=== PATIENT | female | born 1970 | race American Indian/Alaskan Native ===

== ENCOUNTER 2016-09-18 12:37 | Emergency (ER) | payer MEDICAID ==
[2016-09-18 13:48] VITALS: BP 140/98
[2016-09-18] MEDS: NORCO PO ONE (15:34)
--- NOTE | 2016-09-18 15:52 | XRay Report ---
FINAL REPORT EXAM: XR FOOT 3 RT HISTORY: RT FOOT PAIN TECHNIQUE: Three views right foot. PRIORS: None currently available. FINDINGS: There is no acute fracture. There is no evidence for healing fracture. There is no acute dislocation. 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 There is no cortical destruction to suggest osteomyelitis. There are no suspicious osseous lesions. There are no radiopaque foreign objects. Achilles enthesophyte. Calcaneal plantar spur. IMPRESSION: No acute osseous findings. Achilles enthesophyte. Calcaneal plantar spur.
--- NOTE | 2016-09-18 16:15 | Emergency Department Report ---
Entered by CADENCE MACE, acting as scribe for JONN PALMER NP. ED Extremity Problem HPI - General Chief complaint: Extremity Problem,Nontraumatic Stated complaint: RT PINKY TOE SWOLLEN Time Seen by Provider: 09/18/16 15:12 Source: patient Mode of arrival: Wheelchair Limitations: No Limitations - History of Present Illness Initial comments: 46 y/o female with PMHx of CVA and HTN, presents to the ED c/o right lateral foot and right 3rd, 4th, and 5th toe pain beginning last night and worsening this morning. The pain is characterized as throbbing and severe, and aggravated by palpation and ambulation. She states she is unable to tolerate ambulation and wearing shoes. She denies any recent trauma to the affected area and denies Hx of gout. Associated symptom of right 5th toe swelling, but she denies chest pain, SOB, numbness, and tingling. Patient has been taking OTC ibuprofen with no alleviation of the symptoms. Patient states that she did not drive to the ED and states she has a ride home. MD Complaint: extremity pain (and tenderness) -: Last night, This morning (became worse) Location: right (lateral foot) History of Same: No (patient denies Hx of gout) -: No fever, No associated chest pain Radiation: none Severity scale (0 -10): 10 Quality: other (throbbing) Consistency: constant Improves with: nothing (no alleviation with OTC ibuprofen) Worsens with: weight bearing, palpation Associated Symptoms: other (swelling of the right fifth toe, denies numbness and tingling). denies: chest pain, shortness of breath, fever - Related Data Previous Rx's Medication Instructions Recorded Last Taken Type Ibuprofen [Motrin 600 MG tab] 600 mg PO Q8H PRN 20 Days 09/18/16 Unknown Rx Prednisone [predniSONE] 40 mg PO QDAY 5 Days 09/18/16 Unknown Rx Allergies Allergy/AdvReac Type Severity Reaction Status Date / Time Sulfa (Sulfonamide Allergy Swelling Verified 09/18/16 13:42 Antibiotics) ED Review of Systems Constitutional: denies: chills, fever Eyes: denies: eye pain, eye discharge, vision change ENT: denies: ear pain, throat pain Respiratory: denies: shortness of breath Cardiovascular: denies: chest pain Endocrine: no symptoms reported Gastrointestinal: denies: abdominal pain, nausea, diarrhea Genitourinary: denies: urgency, dysuria, discharge Musculoskeletal: other (right lateral foot pain, right 3rd, 4th, and 5th toe pain. Right 5th toe swelling) Skin: denies: rash, lesions Neurological: denies: weakness, numbness, other (tingling) Psychiatric: denies: anxiety, depression Hematological/Lymphatic: denies: easy bleeding, easy bruising ED Past Medical Hx - Past Medical History Hx Hypertension: Yes Hx CVA: Yes - Surgical History Additional Surgical History: - Social History Smoking Status: Never Smoker Substance Use Type: Alcohol - Medications Home Medications: Home Medications Medication Instructions Recorded Confirmed Last Taken Type Ibuprofen [Motrin 600 MG tab] 600 mg PO Q8H PRN 20 Days 09/18/16 Unknown Rx Prednisone [predniSONE] 40 mg PO QDAY 5 Days 09/18/16 Unknown Rx ED Physical Exam - General Limitations: No Limitations General appearance: alert, in no apparent distress - Head Head exam: Present: atraumatic, normocephalic - Eye Eye exam: Present: normal appearance, EOMI - ENT ENT exam: Present: normal external ear exam - Neck Neck exam: Present: normal inspection, full ROM. Absent: tenderness - Respiratory Respiratory exam: Present: normal lung sounds bilaterally. Absent: respiratory distress, wheezes, rales, rhonchi, stridor - Cardiovascular Cardiovascular Exam: Present: regular rate, normal rhythm, normal heart sounds. Absent: systolic murmur, diastolic murmur, rubs, gallop - GI/Abdominal GI/Abdominal exam: Present: soft. Absent: distended, tenderness - Extremities Exam Extremities exam: Present: normal inspection, tenderness (over the right lateral midfoot to the right 3rd, 4th, and 5th toes), normal capillary refill, other (no erythema, no redness, no warmth, or swelling of the right foot and its digits). Absent: pedal edema, joint swelling (right metatarsophalangeal joints) - Back Exam Back exam: Present: normal inspection, full ROM - Neurological Exam Neurological exam: Present: alert, oriented X3, CN II-XII intact - Psychiatric Psychiatric exam: Present: normal affect, normal mood - Skin Skin exam: Present: warm, dry, intact. Absent: rash, other (swelling, erythema , increased warmth over the affected area) ED Course Vital Signs 09/18/16 13:42 Temperature 98.5 F Pulse Rate 73 Respiratory 18 Rate Blood Pressure 140/98 O2 Sat by Pulse 96 Oximetry ED Medical Decision Making - Medical Decision Making Ed course: 46-year-old female that presents with right lateral foot pain and third fourth and fifth toes pain 1- patient received [place] by mouth. 2- x-ray of right foot obtained in the ER: 3- patient lasting toxic or ill appearance. No signs of distress noted. 4- Tung bandage applied to right foot. 5- Patient is aware of dx and Patient agrees to d/c plan and treatment. No further questions noted by the patient. 7- I instructed the patient to buy athlethic shoes such as arch-supporting shoes and exercise/PT may be beneficial ED Disposition Clinical Impression: Plantar fasciitis of right foot Disposition: DISCHARGED TO HOME OR SELFCARE Is pt being admited?: No Does the pt Need Aspirin: No Condition: Stable Instructions: Plantar Fasciitis (ED), RICE Therapy (ED) Additional Instructions: Please follow-up with your primary care doctor and orthopedic in 3-5 days If symptoms worsen report back to ER Exercise may be beneficial. He can also buy a buttock shoes with an arch supporting. Rest and ice the affected foot Prescriptions: Ibuprofen [Motrin 600 MG tab] 600 mg PO Q8H PRN 20 Days PRN Reason: Pain Prednisone [predniSONE] 40 mg PO QDAY 5 Days Referrals: PRIMARY CAREMD [Primary Care Provider] - 3-5 Days MAXIMILIAN MARION MD [Staff Physician] - 3-5 Days Forms: Work/School Release Form(ED) This documentation as recorded by the RODRI hicks GRACE,accurately reflects the service I personally performed and the decisions made by ,JONN PALMER, DE IC[employer] WINDER.
== END 2016-09-18 16:20 | disposition home or self-care (01) ==
LOC: ED 12:37
DX: M72.2 Plantar fascial fibromatosis (principal)
CPT/HCPCS: 99282